=== PATIENT | female | born 1960 | race Caucasian/White ===

== ENCOUNTER → 2017-03-19 09:41 | Outpatient (CLI) | payer BC ==
[2012-12-08 18:55] VITALS: BMI 23.0
[~2017-03-19 09:41] MED LIST: CARAFATE1 G; CREON (PANCRELI1 CAP PO; ESTRACE1 MG PO; KLONOPIN0.5 MG PO; LINZESS OR; OXYCODONE HCL5 MG GT; PREVACID30 MG PO; ZOFRAN8 MG PO
== END | disposition home or self-care (01) ==
LOC: D.CT 09:41
DX: R16.0 Hepatomegaly, not elsewhere classified (principal)

== ENCOUNTER 2018-01-24 19:10 | Emergency (ER) | payer BC ==
[~2018-01-24] VITALS: Ht 160 cm; Wt 65.9 kg
[2018-01-24 19:13] VITALS: Ht 160 cm; Wt 65.9 kg
[2018-01-24] MEDS ORDERED: ZYLOPRIM100 MG PO (19:15)
[2018-01-24] MEDS ORDERED: CYCLOBENZAPRINE10 MG PO (19:19)
[2018-01-24 21:05] VITALS: BP 108/51
== END 2018-01-24 21:06 | disposition home or self-care (01) ==
LOC: D.ER 19:10
DX: S16.1XXA Strain of muscle, fascia and tendon at neck level, initial encounter (principal); V43.52XA Car driver injured in collision with other type car in traffic accident, initial encounter; Y93.89 Activity, other specified; Y92.410 Unspecified street and highway as the place of occurrence of the external cause; S29.012A Strain of muscle and tendon of back wall of thorax, initial encounter

== ENCOUNTER 2019-11-17 08:00 | Outpatient (CLI) | payer BC ==
[2018-01-24 19:13] VITALS: BMI 25.7
[~2019-11-17 08:00] MED LIST changes: +CYCLOBENZAPRINE10 MG PO; +ZYLOPRIM100 MG PO
== END 2019-11-17 13:11 | disposition home or self-care (01) ==
LOC: D.MAMMO 08:00
PROVIDERS: ATTEND Family Medicine
DX: Z12.31 Encounter for screening mammogram for malignant neoplasm of breast (principal)

== ENCOUNTER → 2019-11-25 08:26 | Outpatient (CLI) | payer BC ==
[2018-01-24 19:13] VITALS: BMI 25.7
== END | disposition home or self-care (01) ==
LOC: D.HCCECHO 08:26
PROVIDERS: ATTEND Internal Medicine Cardiovascular Disease
DX: R94.31 Abnormal electrocardiogram [ECG] [EKG] (principal); R06.00 Dyspnea, unspecified